=== PATIENT | male | born 1960 | race Caucasian/White ===

== ENCOUNTER 2016-09-28 19:27 | Emergency (ER) | payer MEDICARE ==
[2016-09-28] MEDS ORDERED: Morphine INJ* 2 MG/ML 1 ML CARPUJECT IV ONE (19:30)
[2016-09-28 19:34] VITALS: BP 173/102
--- NOTE | 2016-09-28 19:48 | UC ---
Cardiac HPI - HPI Summary HPI Summary: SUDDEN ONSET OF CRUSHING LEFT ANTERIOR CHEST PAIN RADIATING DOWN LEFT ARM. HAS SOME NAUSEA AND DIAPHORESIS. DENIES SOB. NO PREVIOUS CARDIAC HISTORY. - History of Current Complaint Chief Complaint: UCChestPain Stated Complaint: CHEST PAIN Time Seen by Provider: 09/28/16 19:30 Hx Obtained From: Patient Onset/Duration: Sudden Onset, Lasting Minutes, Still Present Timing: Constant Initial Severity: Severe Current Severity: Severe Pain Intensity: 7 Chest Pain Location: Left Anterior Character: Crushing Aggravating: Nothing Alleviating: Nothing Associated Signs & Symptoms: Positive: Chest Pain, Diaphoresis, Nausea/ Vomiting. Negative: Dizziness, SOB, Syncope, Fever, Palpitations, Cough, Hemoptysis, Back Pain, Abdominal Pain - Allergy/Home Medications Allergies/Adverse Reactions: Allergies Allergy/AdvReac Type Severity Reaction Status Date / Time Sulfa Antibiotics Allergy Unknown Verified 09/28/16 19:34 Reaction Details ASPIRIN Allergy Severe MAKES ME Uncoded 09/28/16 19:35 BLEED PMH/Surg Hx/FS Hx/Imm Hx Cardiovascular History Of: Reports: Hypertension - Surgical History Surgical History: None - Family History Known Family History: Positive: Cardiac Disease, Hypertension - Social History Alcohol Use: None Substance Use Type: None Smoking Status (MU): Former Smoker Review of Systems Constitutional: Negative Respiratory: Negative Cardiovascular: Chest Pain Gastrointestinal: Other - NAUSEA All Other Systems Reviewed And Are Negative: Yes Physical Exam Triage Information Reviewed: Yes Appearance: Well-Nourished, Ill-Appearing - DIAPHORETIC, Pain Distress - SEVERE Vital Signs: Initial Vital Signs Temp 97.6 F 09/28/16 19:28 Pulse 99 09/28/16 19:28 Resp 20 09/28/16 19:28 BP 173/102 09/28/16 19:28 Pulse Ox 98 09/28/16 19:28 Vital Signs Reviewed: Yes Eyes: Positive: Conjunctiva Clear ENT: Positive: Hearing grossly normal Neck: Positive: Supple Respiratory Exam: Normal Cardiovascular: Positive: Tachycardia Abdomen Description: Positive: Soft Musculoskeletal: Positive: No Edema Neurological: Positive: Alert Psychological: Positive: Age Appropriate Behavior Skin: Negative: rashes Diagnostics - EKG Cardiac Rate: NL - 89 bpm Cardiac Rhythm: Sinus: Normal Ectopy: None ST Segment: Non-Specific - 1MM ST SEGMENT ELEVATION INFERIOR LEADS, ST DEPRESSION V1, V2 - Differential Diagnoses - Chest Pain Differential Diagnosis/HQI/PQRI: Acute [place], ACS, Angina - Clinical Impression Provider Diagnoses: CHEST PAIN - Physician Notifications Discussed Patient Care With: JUAN PABLO MA RN Time Discussed With Above Provider: 19:40 Instructed by Provider To: Transfer - TO [facility] BY AMBULANCE Discharge - Discharge Plan Condition: Guarded Disposition: TRANS HIGHER LVL OF CARE FAC Referrals: Tomy Perez MD [Primary Care Provider] -
== END 2016-09-28 19:45 | disposition short-term general hospital (02) ==
LOC: UCEAST 19:27
DX: R07.89 Other chest pain (principal); R61 Generalized hyperhidrosis; R11.2 Nausea with vomiting, unspecified; Z88.6 Allergy status to analgesic agent; Z88.2 Allergy status to sulfonamides; Z87.891 Personal history of nicotine dependence
CPT/HCPCS: 93005; 96374; 99213; G0463; J2270

== ENCOUNTER 2016-09-28 19:58 | Inpatient (IN) | payer MEDICARE ==
[~2016-09-28 19:58] MED LIST: Aspirin Low Dose CHEW TAB* 81 MG ONE; Heparin for STEMI(*) 5,000 UNITS/ML 1 ML VIAL IV ONE; Nitroglycerin TAB 0.4 MG* 0.4 MG TAB ONE; Ticagrelor* 90 MG TAB PO ONE; nitroGLYCERIN DRIP* 0 ML ONE
[2016-09-28] MEDS ORDERED: Iohexol 350 (CONTRAST) 200 ML MDV IV ONE ×2 (20:09→20:55)
[2016-09-28] MEDS ORDERED: fentaNYL* 50 MCG/ML 2 ML VIAL (100 MCG VIAL) ONE (20:09)
[2016-09-28] MEDS ORDERED: Ticagrelor* 90 MG TAB PO ONE (20:09)
[2016-09-28] MEDS ORDERED: Lidocaine 1% INJ* 10 MG/ML 30 ML SDV ONE (20:09)
[2016-09-28] MEDS ORDERED: Heparin 2 UNITS/ML IVPREMIX* 3,000 ML IV ONE (20:09)
[2016-09-28] MEDS ORDERED: Midazolam* 1 MG/ML 5 ML VIAL (5 MG) ONE (20:09)
[2016-09-28] MEDS ORDERED: Heparin for STEMI(*) 5,000 UNITS/ML 1 ML VIAL IV ONE (20:10)
[2016-09-28] MEDS ORDERED: nitroGLYCERIN DRIP* 250 ML ONE (20:10)
[2016-09-28 20:17] LABS: Hematocrit 47 % (42-52); Hemoglobin 15.7 g/dl (14.0-18.0); Mean Corpuscular HGB Conc 34 g/dl (31-36); Mean Corpuscular Hemoglobin 30 pg (27-31); Mean Corpuscular Volume 90 fL (80-94); Mean Platelet Volume 9 um3 (7.4-10.4); Red Blood Count 5.19 10^6/ul (4.0-5.4); Red Cell Distribution Width 13 % (10.5-15); White Blood Count 15.4 10^3/ul (3.5-10.8)
[2016-09-28] MEDS ORDERED: Nitroglycerin TAB 0.4 MG* 0.4 MG TAB SL ONE (20:21)
--- NOTE | 2016-09-28 20:30 | RAD ---
INDICATION: Chest pain, STEMI. COMPARISON: There are no prior studies available for comparison. TECHNIQUE: A portable view of the chest was obtained. FINDINGS: Cardiac and mediastinal contours appear to be within normal limits. The lungs are underinflated and clear. No pleural effusion is seen. IMPRESSION: NO EVIDENCE FOR ACUTE DISEASE.
--- NOTE | 2016-09-28 20:30 | ED ---
Maryanne Mercedes SooYoung, scribed for Stefano Clancy MD on 09/28/16 at 2010 . HPI Chest Pain - HPI Summary HPI Summary: A 55 y/o M BIBA referred from [facility] presents to ED with STEMI. Pt has crushing left-sided CP and pain along his LUE. He states it feels like "his arm is being ripped off." Rates his current pain as 8 out of 10. According to EMS, pt was "feeling funny" all day and was having terrible pain for 30-45 mins [employer] at [facility] [place]. Pt told [facility] the CP was "the worst he's ever had." Denies SOB, nausea. Pt states he was sitting at onset of pain. Pt is a former smoker with FHx of cardiac dz. PMHx: HTN, neg DM. - History of Current Complaint Hx Obtained From: Patient, EMS Onset/Duration: Still Present Timing: Constant Initial Severity: Severe Current Severity: Severe Pain Intensity: 8 Pain Scale Used: 0-10 Numeric Chest Pain Location: Diffuse - L-sided CP, LUE pain Character: Crushing Associated Signs and Symptoms: Negative: Shortness of Breath, Nausea - Allergy/Home Medications Allergies/Adverse Reactions: Allergies Allergy/AdvReac Type Severity Reaction Status Date / Time Sulfa Antibiotics Allergy Unknown Verified 09/28/16 19:34 Reaction Details ASPIRIN Allergy Severe MAKES ME Uncoded 09/28/16 19:35 BLEED PMH/Surg Hx/FS Hx/Imm Hx Previously Healthy: No Endocrine/Hematology History: Denies: Hx Diabetes Cardiovascular History: Reports: Hx Hypertension - Family History Known Family History: Positive: Cardiac Disease - father, Hypertension - Social History Occupation: Disabled Lives: Alone Alcohol Use: None Hx Substance Use: No Substance Use Type: Reports: None Hx Tobacco Use: Yes Smoking Status (MU): Former Smoker Review of Systems Positive: Chest Pain Negative: Shortness Of Breath Negative: Nausea Positive: Myalgia - LUE pain, Other All Other Systems Reviewed And Are Negative: Yes Physical Exam Triage Information Reviewed: Yes Vital Signs On Initial Exam: Initial Vitals Temp Pulse Resp BP Pulse Ox 97.5 F 87 20 157/99 97 09/28/16 20:03 09/28/16 20:03 09/28/16 20:03 09/28/16 20:03 09/28/16 20:03 Vital Signs Reviewed: Yes Appearance: Positive: Ill-Appearing, Pain Distress - moderate Skin: Positive: Warm, Diaphoretic Eyes: Positive: FATIMAH ENT: Positive: Hearing grossly normal Neck: Positive: Supple Respiratory/Lung Sounds: Positive: Clear to Auscultation, Breath Sounds Present Cardiovascular: Positive: RRR Abdomen Description: Positive: Nontender, No Organomegaly, Soft Bowel Sounds: Positive: Present Musculoskeletal: Positive: Strength/ROM Intact Neurological: Positive: Sensory/Motor Intact, Alert, Oriented to Person Place, Time Psychiatric: Positive: Affect/Mood Appropriate Diagnostics - Vital Signs Vital Signs Temp Pulse Resp BP Pulse Ox 09/28/16 20:03 97.5 F 87 20 157/99 97 - Laboratory Lab Results: Lab Results 09/28/16 09/28/16 Range/Units 19:33 19:33 WBC 15.4 H (3.5-10.8) 10^3/ul RBC 5.19 (4.0-5.4) 10^6/ul Hgb 15.7 (14.0-18.0) g/dl Hct 47 (42-52) % MCV 90 (80-94) fL MCH 30 (27-31) pg MCHC 34 (31-36) g/dl RDW 13 (10.5-15) % Plt Count 171 (150-450) 10^3/ul MPV 9 (7.4-10.4) um3 Neut % (Auto) Pending Lymph % (Auto) Pending [place] % (Auto) Pending Eos % (Auto) Pending Baso % (Auto) Pending Absolute Neuts (auto) Pending Absolute Lymphs (auto) Pending Absolute Monos (auto) Pending Absolute Eos (auto) Pending Absolute Basos (auto) Pending Absolute Nucleated RBC Pending Nucleated RBC % Pending INR (Anticoag Therapy) 0.93 (0.89-1.11) APTT 30.4 (26.0-36.3) seconds Result Diagrams: 09/28/16 19:33 Lab Statement: Any lab studies that have been ordered have been reviewed, and results considered in the medical decision making process. - EKG No standard instances Cardiac Rate: NL EKG Rhythm: Sinus Rhythm Chest Pain Course/Dx - Diagnoses Provider Diagnoses: STEMI (ST elevation myocardial infarction) During the Visit The Following Alert/Code Occurred: STEMI - Provider Notifications Instructed by Provider To: Admit As Inpatient - Critical Care Time Critical Care Time: 30-74 min Discharge - Discharge Plan Condition: Critical Disposition: ADMITTED TO [facility] The documentation as recorded by the Maryanne gonzalez SooYoung accurately reflects the service I personally performed and the decisions made by me, Stefano Clancy MD.
[2016-09-28 20:36] LABS: Albumin 4.5 g/dL (3.2-5.2); BUN/Creatinine Ratio 13.8 (8-20); Calcium 9.7 mg/dL (8.6-10.3); EGFR African American 106.8 (>60); Globulin 3.5 g/dL (2-4); Potassium 3.6 mmol/L (3.5-5.0); Total Bilirubin 0.5 mg/dL (0.2-1.0)
[2016-09-28 20:42] LABS: Troponin I 0.04 ng/mL (<0.04)
[2016-09-28] MEDS ORDERED: Bivalirudin(*) 250 MG VIAL ONE (20:59)
[2016-09-28] MEDS ORDERED: Ondansetron INJ* 2 MG/ML VIAL IV PRN (21:16)
[2016-09-28] MEDS ORDERED: Docusate CAP* 100 MG PO PRN (21:16)
[2016-09-28] MEDS ORDERED: Acetaminophen TAB* 325 MG PO PRN (21:16)
[2016-09-28] MEDS ORDERED: oxyCODONE/Acetamin 5/325 MG* TAB PO PRN (21:16)
[2016-09-28] MEDS ORDERED: Nitroglycerin TAB 0.4 MG* 0.4 MG TAB SL PRN (21:16)
[2016-09-28] MEDS ORDERED: Zolpidem TAB* 5 MG PO PRN (21:16)
[2016-09-28] MEDS ORDERED: fentaNYL* 50 MCG/ML 2 ML VIAL (100 MCG VIAL) IV PRN (21:16)
[2016-09-28] MEDS ORDERED: NS 0.9% 1000 ML* 1,000 ML IV SCH (21:30)
[2016-09-28] MEDS ORDERED: Metoprolol Tartrate TAB* 25 MG PO SCH (22:00)
[2016-09-28] MEDS ORDERED: Gabapentin CAP(*) 100 MG ONE (22:02)
[2016-09-28] MEDS: Metoprolol Tartrate TAB* 25 MG PO SCH (22:05)
[2016-09-28] MEDS: Atorvastatin* 80 MG TAB PO SCH (22:05)
[2016-09-29 01:29] LABS: Creatine Kinase 2109 U/L (10-223)
[2016-09-29 01:30] LABS: Troponin I > 85.00 ng/mL (<0.04)
[2016-09-29] MEDS ORDERED: Potassium Chloride LIQUID* 20 MEQ PACKET ONE (01:40)
[2016-09-29] MEDS ORDERED: Magnesium Sulfate 1 GM IV* 1 GM/100 ML BAG IV PRN (01:48)
[2016-09-29 06:01] LABS: Hematocrit 44 % (42-52); Hemoglobin 14.9 g/dl (14.0-18.0); Mean Corpuscular HGB Conc 34 g/dl (31-36); Mean Corpuscular Hemoglobin 31 pg (27-31); Mean Corpuscular Volume 91 fL (80-94); Mean Platelet Volume 9 um3 (7.4-10.4); Red Cell Distribution Width 13 % (10.5-15); White Blood Count 14.6 10^3/ul (3.5-10.8)
[2016-09-29 06:13] LABS: Albumin 3.9 g/dL (3.2-5.2); BUN/Creatinine Ratio 15.6 (8-20); Calcium 9.2 mg/dL (8.6-10.3); EGFR African American 134.4 (>60); EGFR Non-African American 104.5 (>60); Globulin 3.1 g/dL (2-4); HDL Cholesterol 25.5 mg/dL; Potassium 3.9 mmol/L (3.5-5.0); Total Bilirubin 0.6 mg/dL (0.2-1.0)
[2016-09-29 06:19] LABS: Troponin I 63.83 ng/mL (<0.04)
[2016-09-29] MEDS: Ticagrelor* 90 MG TAB PO SCH ×3 (06:44→22:43)
[2016-09-29] MEDS: Metoprolol Tartrate TAB* 25 MG PO SCH ×2 (08:14→21:08)
[2016-09-29] MEDS ORDERED: Gabapentin CAP(*) 300 MG PO SCH ×2 (09:00→17:04)
[2016-09-29] MEDS: Aspirin Low Dose CHEW TAB* 81 MG PO SCH (09:11)
--- NOTE | 2016-09-29 14:30 | HP ---
ADMISSION HISTORY AND PHYSICAL: DATE OF ADMISSION: 09/28/16 CHIEF COMPLAINT: The patient presents with chest discomfort with an EKG suggestive of an acute ST segment elevation posterior CA. HISTORY OF PRESENT ILLNESS: The patient is a pleasant 55-year-old gentleman who was in his usual state of health until yesterday while sitting, watching TV , he developed the onset of severe left arm discomfort. Eventually it progressed to the chest, with nauseousness and sweating. He instructed his to take him to [facility] where an EKG was done which showed acute ST segment depression in V1 and V2, suggesting a posterior CA, with question of minimal, if any, ST segment elevation inferiorly. STEMI alert was called and he was transferred to [facility] Emergency Room. In the emergency room, he was still having severe discomfort. He received a bolus of 4000 units of heparin, had already received aspirin therapy, and he received Brilinta 180 mg and morphine for the discomfort. The risk and benefits of cardiac catheterization and acute intervention were explained. He understood them and wished to proceed. Cardiac risk factors include a family history of a father who had his first heart problems in his 40s, with bypass surgery, and subsequently from it. He has a history of hypertension, a remote nonsignificant smoking history, no history of diabetes, and he has no knowledge of high cholesterol. PAST MEDICAL HISTORY: Includes: 1. Hypertension. 2. He has significant back issues. 3. He also has history of prostate problems. MEDICATIONS: He is on medication with gabapentin and also ibuprofen. 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 No stroke or TIA. No history of dye allergy. No history of known renal insufficiency, and no allergy to the contrast agent. PHYSICAL EXAMINATION VITAL SIGNS: When I saw him in the emergency room, blood pressure 157/99, pulse is 87, respirations 20, afebrile. HEENT: Conjunctivae are pink. Sclerae are clear. Mouth reveals moist mucosa. NECK: Supple, with no increased JVP. Carotids are without bruits. LUNGS: Reveal no accessory muscle usage. There is no active rales, rhonchi or wheezes. HEART: Reveals no visible heaves, no palpable heaves or thrills. A regular rate and rhythm is noted. No significant systolic or diastolic murmur. ABDOMEN: Soft and nontender, without organomegaly. EXTREMITIES: Without clubbing, cyanosis or love pitting edema. Peripheral pulses are intact. MUSCULOSKELETAL: The patient moves all extremities appropriately. NEUROLOGIC: The patient is alert and oriented, with normal mentation. PSYCHOLOGICAL: The patient appropriately anxious. DIAGNOSTIC STUDIES/LAB DATA: Laboratory results - Pending at the time of proceeding to the cardiovascular laboratory. Chest x-ray report - Pending at the time of proceeding. Electrocardiogram showed mild J-point elevation in V5 and V6, and perhaps less so in the inferior leads, with ST segment depression in V1 and V2, all suggesting a posterolateral myocardial infarction. The patient received heparin therapy, Brilinta therapy, and aspirin. The risks and benefits were explained. We will adjust management pending the results of the cardiac catheterization. CC: Dr. Tomy Perez * [id number]/[facility] #: [id number] MTDD
[2016-09-29 15:14] LABS: Troponin I 23.37 ng/mL (<0.04)
[2016-09-29 16:12] LABS: Hematocrit 42 % (42-52); Hemoglobin 14.5 g/dl (14.0-18.0); Mean Corpuscular HGB Conc 34 g/dl (31-36); Mean Corpuscular Hemoglobin 31 pg (27-31); Mean Corpuscular Volume 90 fL (80-94); Mean Platelet Volume 8 um3 (7.4-10.4); Red Blood Count 4.69 10^6/ul (4.0-5.4); Red Cell Distribution Width 13 % (10.5-15); White Blood Count 17.7 10^3/ul (3.5-10.8)
--- NOTE | 2016-09-29 17:33 | RAD ---
INDICATION: Fever. COMPARISON: Comparison is made with a prior chest x-ray study from September 28, 2016. TECHNIQUE: A portable view of the chest was obtained. FINDINGS: Cardiac and mediastinal contours appear to be within normal limits. The lungs are underinflated and clear. No pleural effusion is seen. IMPRESSION: NO EVIDENCE FOR ACUTE DISEASE.
[2016-09-29] MEDS: Cefepime(*) 1 GM in NS 0.9% 50 ML* 50 ML IVPB SCH (17:52)
[2016-09-29] MEDS ORDERED: Vancomycin(*) 1,500 MG in NS 0.9% 250 ML* 250 ML IVPB SCH (18:00)
[2016-09-29] MEDS ORDERED: Vancomycin per Pharmacy* NOTE FOLLOW UP PRN (18:06)
[2016-09-29] MEDS ORDERED: Vancomycin(*) 1,500 MG in NS 0.9% 250 ML* 250 ML IVPB ONE (18:30)
[2016-09-29 18:45] LABS: Urine Bilirubin Negative (Negative); Urine Glucose Negative (Negative); Urine Nitrite Negative (Negative)
[2016-09-29] MEDS: Tamsulosin CAP* 0.4 MG PO SCH (18:54)
[2016-09-29] MEDS: Atorvastatin* 80 MG TAB PO SCH (18:54)
[2016-09-29] MEDS: Gabapentin CAP(*) 100 MG PO SCH (21:08)
[2016-09-29] MEDS: Vancomycin(*) 1,000 MG in NS 0.9% 250 ML* 250 ML IVPB SCH (23:36)
--- NOTE | 2016-09-30 01:47 | CONS ---
CONSULTATION REPORT: DATE OF CONSULT: 09/29/16 PHYSICIAN CONSULTING CONSULT: Dr. Leigh from Cardiology. PRIMARY CARE PROVIDER: Dr. Perez. REASON FOR CONSULT: Fever. HISTORY OF PRESENT ILLNESS: Deuce Ambriz is a 55-year-old male who was admitted on 09/29/16 for STEMI. He presented with chest pain. He was a STEMI alert and had an emergent catheterization and stent placement by Dr. Leigh. The same day in the afternoon, he developed rigors. He felt cold and chilly and he developed a fever of 101.9 degrees. He has no other symptoms. Dr. Leigh asked me to see the patient in consultation in regards to the patient's fever. PAST MEDICAL HISTORY: 1. Hypertension. 2. History of chronic back pain. 3. History of BPH. MEDICATIONS: At home, include: 1. Flomax 0.4 mg daily. 2. Hydrochlorothiazide 25 mg daily. 3. Hydrocodone/acetaminophen 5/325 mg 5 tablets every 6 hours p.r.n. 4. Gabapentin 100 mg b.i.d. 5. Ibuprofen 800 mg on a p.r.n. basis. ALLERGIES: Include SULFA ANTIBIOTICS and ASPIRIN, although it appears that the patient received aspirin so far and has no side effects. SOCIAL HISTORY: The patient has a history of [id number] smoking and he quit in . He denies any alcohol or drug use. He is on disability and lives alone. His surrogate would be sister, Elsa. REVIEW OF SYSTEMS: Please see history of present illness. Apart from recent chest pain which resolved after cardiac catheterization, the patient denies any specific complaints. He denies any chest pain currently. No shortness of breath. No nausea or vomiting. His bowels have been moving regularly. He denies any skin lesions. He has had no sick contacts. All the remaining 14 systems were reviewed with the patient and were otherwise negative. PHYSICAL EXAM: Blood pressure of 104/63, heart rate of 65 and regular, respiratory rate 15, oxygen saturation 99% on room air, and temperature max of 101.9. General: This is a very pleasant 55-year-old male, whose skin is mildly flushed. The patient is in no acute distress. Alert, awake, and oriented x3. HEENT: Head: Atraumatic, normocephalic. Eyes: Pupils equal, reactive to light and accommodation. Oropharynx clear. Mucosa moist. Neck: Supple. No JVD, no bruit bilaterally. Cardiovascular: Regular rate and rhythm. No murmur. Respiratory: Clear to auscultation bilaterally. Abdomen: Soft, nontender. Bowel sounds present in all 4 quadrants. Extremities: There is no edema. Pulses are +2 bilaterally. No clubbing or cyanosis. On evaluation of the skin, flushed skin on the upper torso. No lesions are appreciated. No ecchymotic areas are appreciated. Neuro Evaluation: Speech clear. Cranial nerves II through XII grossly intact. Motor strength is 5/5 bilaterally. Specifically, on evaluation of the skin, the right inguinal area where the cardiac catheterization access was performed has a small puncture site. There is no evidence of hematoma. The right femoral and pedal pulses are palpable and +2. There is no evidence of cellulitis. The area is not tender. DIAGNOSTIC STUDIES/LAB DATA: From today shows white blood cell count of 17.7, hemoglobin 14.5, hematocrit 42, and platelets of 150. Sodium 135, potassium 3.9 , chloride 106, carbon dioxide 24, BUN 12, creatinine 0.77. The patient's CK was 110. Troponin of 23. Portable chest x-ray on admission was unremarkable. The second chest x-ray obtained today is pending at the time of dictation. Urinalysis, blood cultures, and flu swab are still pending at the time of dictation. ASSESSMENT AND PLAN: Deuce Ambriz is a 55-year-old male with a history of recent cardiac catheterization within the past 24 hours, who presented to the hospital as a STEMI alert. He received cardiac catheterization and now, he is febrile with rigors. He does have leukocytosis. At this point, I discussed the case with Dr. Leigh and preference is for the patient to be treated for line sepsis. The patient is empirically going to be placed on vancomycin and cefepime. Before the antibiotics are infused, blood cultures are going to be obtained. I will also obtain a lactic acid level. I will also place the patient on gentle hydration. In regards to the patient's coronary artery disease, that is managed as per Cardiology. For DVT prophylaxis, the patient was ambulatory. Thank you for allowing me to see your patient in consultation. We will follow on a daily basis. CC: Dr. Leigh; Dr. Perez* [id number]/[facility] #: [id number] ROSARIO
--- NOTE | 2016-09-30 05:29 | CATH ---
CARDIAC CATHETERIZATION REPORT AND INTERVENTIONAL REPORT: DATE OF PROCEDURE: 09/28/16 INDICATION FOR THE PROCEDURE: The patient with an acute ST segment elevation posterolateral wall myocardial infarction. PROCEDURES: Coronary arteriography, primary stenting of the trifurcation marginal branch with a 2.75 x 16-mm long Synergy drug-eluting stent postdilated to 3.1 to 3.2 mm, left heart catheterization, left ventriculography. The patient was interviewed and examined in the emergency room where the risks and benefits were explained. He understood them and wished to proceed. DESCRIPTION OF PROCEDURE: He was brought to the cardiovascular laboratory where a formal time-out was performed. The patient was prepped and draped in a sterile fashion. Right coronary was anesthetized with 1% lidocaine. The right femoral artery was cannulated, and a 6.5-Prydeinig Merit Prelude sheath was placed. Coronary arteriography was performed using a 5-Prydeinig FR-4 curve right coronary catheter and a 6-Prydeinig VL-4 curve guide catheter. ACT was checked and found to be subtherapeutic for intervention. The patient received a bolus of Angiomax and an Angiomax drip was started. An 0.14 AllStar wire was advanced down the trifurcation marginal branch and primary stenting was performed utilizing the 2.75 x 60 mm long Synergy drug-eluting stent with postdeployment high pressure balloon inflations with a 3.0 x 8 mm NC Emerge balloon. Following this, the artery was assessed in various angles. Following this, central aortic pressure was recorded using an angle pigtail catheter advanced to the ascending aorta. It was then passed across the aortic valve into the left ventricle where left ventricular pressure was recorded. Left ventriculography was performed utilizing a total of 24 cc of Omnipaque dye at a rate of 12 cc per second. The catheter was pulled back across the aortic valve to recheck gradient. At the end of the case, an injection was made into the right femoral sheath to assess eligibility to utilize the closure device. It was found to be acceptable for this and as such, a 6/7-Prydeinig Mynx closure device was deployed with good hemostasis. The total contrast used was 145 cc of Omnipaque dye. The radiation exposure included 8.9 minutes of fluoro time. The air kerma radiation was 1604 mGy. The DAPA radiation was 9320 microgray per sq. meter. RESULTS: HEMODYNAMIC DATA: Left heart catheterization - central aortic pressure recorded at 144/86 with a mean of 112, left ventricular pressure 146 over left ventricular end- diastolic pressure of 23. LEFT VENTRICULOGRAPHY: Performed in the STERN projection revealed suboptimal imaging but from limited views, the inferior wall appeared to contract normally. The proximal anterior wall appeared to contract normally. The apex was not well visualized ( echocardiogram will be performed for LV function). CORONARY ARTERIOGRAPHY: A. Right coronary artery - a dominant vessel supplying the PDA and one posterior left ventricular branch. There was diffuse irregular appearance to the artery in general with areas of luminal reduction of 20% in its proximal and midportion. The distal portion had a focal area of 25% to 30% prior to the PDA. B. Left coronary artery: 1. Left main - no significant obstruction seen. 2. Left anterior descending artery - the left anterior descending artery appeared to have an abrupt caliber change in its proximal portion, almost felt to be somewhat aneurysmally dilated proximally. Past the proximal aneurysmal area, the artery appeared to have a reduction in caliber of 50% near the takeoff of the first diagonal branch. The continuation of the left anterior descending artery had narrowing of 40% to 45% followed by a beaded appearance with areas of 35% to 40% narrowing as it traversed toward the apical region. It became quite small in caliber. The first diagonal branch was a large vessel traversing on the anterolateral wall with no significant stenosis. 3. Circumflex artery - a nondominant vessel supplying a trifurcation marginal branch followed by a mid obtuse marginal branch with a circumflex continuing on to a low-lying posterior LV branch. Trifurcation marginal branch had a 99% lesion with DEVANG-I flow noted. Past this point, the first obtuse marginal branch had a proximal narrowing of perhaps 50% to 55% leading to a larger area followed by a 45% to 50% narrowing just past this. The continuation of the circumflex had no significant obstruction. INTERVENTION INTO TRIFURCATION MARGINAL BRANCH: Successful intervention to 99% stenosed proximal lesion in trifurcation marginal branch with primary stenting utilizing a 2.75 x 16 mm long Synergy drug -eluting stent postdilated to 3.1 to 3.2 mm with DEVANG-III flow, no dissection seen, and 0% residual stenosis. OVERALL ASSESSMENT: Significant critical disease involving the high trifurcation marginal branch producing a posterolateral infarct successfully treated with primary stenting as described above. There is moderate diffuse disease and perhaps some aneurysmal areas of dilatation in the proximal LAD. Aggressive risk factor management will be pursued with cholesterol management in addition to dual antiplatelet therapy, aspirin therapy. The patient currently does not smoke. CC: Dr. Tomy Perez* [id number]/[facility] #: [id number] MTDD
[2016-09-30] MEDS: Vancomycin(*) 1,000 MG in NS 0.9% 250 ML* 250 ML IVPB SCH ×4 (06:11→23:26)
[2016-09-30] MEDS: Cefepime(*) 1 GM in NS 0.9% 50 ML* 50 ML IVPB SCH ×2 (06:11→17:50)
[2016-09-30 06:24] LABS: Hematocrit 41 % (42-52); Mean Corpuscular HGB Conc 34 g/dl (31-36); Mean Corpuscular Hemoglobin 31 pg (27-31); Mean Corpuscular Volume 91 fL (80-94); Mean Platelet Volume 9 um3 (7.4-10.4); Red Blood Count 4.52 10^6/ul (4.0-5.4); Red Cell Distribution Width 13 % (10.5-15); White Blood Count 14.9 10^3/ul (3.5-10.8)
[2016-09-30] MEDS: Gabapentin CAP(*) 100 MG PO SCH ×2 (09:13→20:40)
[2016-09-30] MEDS: Metoprolol Tartrate TAB* 25 MG PO SCH ×2 (09:13→20:41)
[2016-09-30] MEDS: Aspirin Low Dose CHEW TAB* 81 MG PO SCH (09:13)
[2016-09-30] MEDS: Ticagrelor* 90 MG TAB PO SCH ×2 (09:14→20:41)
--- NOTE | 2016-09-30 11:08 | ECHO ---
Patient: PEGGY LORENZ [facility] Rec#: [id number] : 1960 Date: 09/30/2016 Age: 55y Height: 187.96 cm / 74.0 in Weight: 95.25 kg / 209.9 lbs Sex: M BSA: 2.22 Room#: ICU-2 Admit Date#: 09/28/2016 Referring: Severo Leigh MD Reading: Srinivasan Singletary MD Contact Finger Assembler: Alana Estrada MORRIS CC: Tomy Perez MD Transthoracic Echocardiogram Indication: STEMI BP: 105/75 HR: 76 Rhythm: NSR Findings History: STEMI 09/28/16 with PCI,HTN,former smoker. Technical Comments: The study quality is good. Completed at 1015. Left Ventricle: Mild concentric left ventricular hypertrophy is observed. Left ventricular systolic function is at the lower limits of normal. The estimated ejection fraction is 50-55%. Normal left ventricular diastolic filling is observed. The mid anterolateral, and apical lateral wall segments are hypokinetic (score 2). Overall wallmotion score index is 2.00 Left Atrium: The left atrium is normal in size. Right Ventricle: The right ventricular cavity size is normal. The right ventricular global systolic function is normal. Right Atrium: The right atrial cavity size is normal. Aortic Valve: The aortic valve is trileaflet. There is no evidence of aortic regurgitation. There is no evidence of aortic stenosis. Mitral Valve: The mitral valve leaflets are mildly thickened. There is trace to mild mitral regurgitation. There is no evidence of mitral stenosis. Tricuspid Valve: The tricuspid valve leaflets are normal. There is a physiologic tricuspid regurgitation. Unable to estimate the right ventricular systolic pressure. Pulmonic Valve: The pulmonic valve appears normal. There is a trace pulmonic regurgitation. There is no pulmonic stenosis. Pericardium: The pericardium appears normal. Aorta: There is no dilatation of the ascending aorta. There is no dilatation of the aortic arch. There is mild dilatation of the aortic root. Pulmonary Artery: The main pulmonary artery appears normal. Venous: The venous system is not well visualized. Conclusions Left ventricular systolic function is at the lower limits of normal. The estimated ejection fraction is 50-55%. The mid anterolateral, and apical lateral wall segments are hypokinetic (score 2). The right ventricular global systolic function is normal. There is no evidence of aortic regurgitation. There is trace to mild mitral regurgitation. There is a physiologic tricuspid regurgitation. Unable to estimate the right ventricular systolic pressure. The pericardium appears normal. Measurements Name Value Normal Range RVIDd (AP) 2D 3.2 cm (0.9 - 2.6) RVDdMajor (2D) 2.9 cm (2.2 - 4.4) RAd ISD 4CH 3.7 cm (3.4 - 4.9) RA (A4C)W 3.4 cm (2.9 - 4.6) IVSd (2D) 1.2 cm (0.6 - 1) LVPWd (2D) 1.4 cm (0.6 - 1) LVIDd (2D) 4.5 cm (3.6 - 5.4) LVIDs (2D) 3.2 cm - LV FS (2D) 29 % (25 - 45) Aortic Annulus 2.3 cm (1.4 - 2.6) Ao root diameter (2D) 3.9 cm (2.1 - 3.5) Ascending Ao 3.3 cm (2.1 - 3.4) Aortic arch 2.9 cm (1.8 - 3.4) Descending Ao 0.9 cm - LA dimension (AP) 2D 3.8 cm (2.3 - 3.8) LAd ISD 4CH 4.9 cm (2.9 - 5.3) LA ISD 4CH W 4 cm (2.5 - 4.5) Name Value Normal Range LA ESV SP 4CH (A/L) 52 ml - LA ESV SP 2CH (A/L) 47 ml - LA ESV BP (A/L) 50 ml - LA ESV BP (A/L) index 22.67 ml/m2 - LA ESV SP 4CH (MOD) 44 ml - LA ESV SP 2CH (MOD) 44 ml - Name Value Normal Range MV E-wave Vmax 0.8 m/sec - MV deceleration time 138 msec - MV A-wave Vmax 0.5 m/sec - MV E:A ratio 1.46 ratio - LV septal e' Vmax 0.07 m/sec - LV lateral e' Vmax 0.12 m/sec - LV E:e' septal ratio 11.42 ratio - LV E:e' lateral ratio 6.67 ratio - Name Value Normal Range AV Vmax 1.3 m/sec - AV VTI 27.8 cm - AV peak gradient 7.18 mmHg - AV mean gradient 3.7 mmHg - LVOT Vmax 1.1 m/sec - LVOT VTI 24.6 cm - LVOT peak gradient 5.26 mmHg - LVOT mean gradient 2.46 mmHg - Name Value Normal Range IVC diameter 1.4 cm - Name Value Normal Range PV Vmax 0.9 m/sec - PV peak gradient 3.35 mmHg - Wallmotion BAS Not Seen BA Not Seen BAL Not Seen GARRET Not Seen BI Not Seen BIS Not Seen MAS Not Seen MA Not Seen MAL Hypokinetic MIL Not Seen OK Not Seen MIS Not Seen Not Seen AA Not Seen AL Hypokinetic AI Not Seen APEX Not Seen
[2016-09-30] MEDS ORDERED: Vancomycin Trough Check NOTE FOLLOW UP ONE (12:30)
--- NOTE | 2016-09-30 12:37 | PN ---
Subjective Date of Service: 09/30/16 Interval History: No chest pain, cough, SOB, chills, sweats. No GI or other c/o. Objective Active Medications: Acetaminophen (Tylenol Tab*) 650 mg PO Q4H PRN PRN Reason: HEADACHE/PAIN Last Admin: 09/29/16 21:07 Dose: 650 mg Aspirin (Aspirin Low Dose Tab*) 81 mg PO DAILY [facility] Last Admin: 09/30/16 09:13 Dose: 81 mg Atorvastatin Calcium (Lipitor*) 80 mg PO 1700 [facility] Last Admin: 09/29/16 18:54 Dose: 80 mg Docusate Sodium (Colace Cap*) 100 mg PO DAILY PRN PRN Reason: CONSTIPATION Fentanyl Citrate (Fentanyl*) 25 mcg IV Q2H PRN PRN Reason: PAIN Gabapentin (Neurontin Cap(*)) 200 mg PO BID [facility] Last Admin: 09/30/16 09:13 Dose: 200 mg Sodium Chloride (Ns 0.9% 1000 Ml*) 1,000 mls @ 100 mls/hr IV .per rate [facility] Last Admin: 09/28/16 22:06 Dose: 100 mls/hr Magnesium Sulfate/Dextrose (Magnesium Sulfate 1 Gm Iv*) 1 gm in 100 mls @ 200 mls/hr IV ONCE PRN PRN Reason: MAGNESIUM < 2 Cefepime HCl 1 gm/ Sodium (Chloride) 50 mls @ 100 mls/hr IVPB Q12H [facility] Last Admin: 09/30/16 06:11 Dose: 100 mls/hr Vancomycin HCl 1,000 mg/ (Sodium Chloride) 250 mls @ 166.667 mls/hr IVPB Q6H [facility] Last Admin: 09/30/16 06:11 Dose: 166.667 mls/hr Metoprolol Tartrate (Lopressor Tab*) 25 mg PO BID [facility] Last Admin: 09/30/16 09:13 Dose: 25 mg Nitroglycerin (Nitroglycerin Tab 0.4 Mg*) 0.4 mg SL Q5M PRN PRN Reason: ANGINA Ondansetron HCl (Zofran Inj*) 4 mg IV Q4H PRN PRN Reason: NAUSEA Oxycodone/Acetaminophen (Percocet 5/325 Tab*) 1 tab PO Q6H PRN PRN Reason: PAIN Pharmacy Consult (Vancomycin Per Pharmacy*) 1 note FOLLOW UP . PRN PRN Reason: PER PROTOCOL Tamsulosin HCl (Flomax Cap*) 0.4 mg PO 1800 [facility] Last Admin: 09/29/16 18:54 Dose: 0.4 mg Ticagrelor (Brilinta*) 90 mg PO BID [facility] Last Admin: 09/30/16 09:14 Dose: 90 mg Zolpidem Tartrate (Ambien Tab*) 5 mg PO BEDTIME PRN PRN Reason: INSOMNIA Vital Signs 09/29/16 09/29/16 09/29/16 13:00 14:00 14:32 Temperature 100.6 F Pulse Rate Respiratory 18 17 Rate Blood Pressure 138/102 (mmHg) O2 Sat by Pulse Oximetry 09/29/16 09/29/16 09/29/16 14:38 15:00 15:30 Temperature Pulse Rate Respiratory 18 Rate Blood Pressure 133/85 108/73 117/65 (mmHg) O2 Sat by Pulse Oximetry 09/29/16 09/29/16 09/29/16 16:00 16:30 16:32 Temperature 101.9 F 99.0 F Pulse Rate Respiratory 18 Rate Blood Pressure 116/63 106/68 (mmHg) O2 Sat by Pulse Oximetry 09/29/16 09/29/16 09/29/16 17:00 17:30 17:42 Temperature 100.9 F Pulse Rate Respiratory 16 Rate Blood Pressure 123/74 119/67 (mmHg) O2 Sat by Pulse Oximetry 09/29/16 09/29/16 09/29/16 18:00 18:30 19:00 Temperature Pulse Rate Respiratory 15 16 Rate Blood Pressure 116/72 126/79 96/42 (mmHg) O2 Sat by Pulse Oximetry 09/29/16 09/29/16 09/29/16 19:30 20:00 20:30 Temperature 101.4 F Pulse Rate Respiratory 16 Rate Blood Pressure 106/51 101/57 87/44 (mmHg) O2 Sat by Pulse Oximetry 09/29/16 09/29/16 09/29/16 21:00 21:30 22:00 Temperature 101 F Pulse Rate 76 74 80 Respiratory 23 22 20 Rate Blood Pressure 101/65 98/65 98/64 (mmHg) O2 Sat by Pulse 95 94 94 Oximetry 09/29/16 09/29/16 09/29/16 22:30 22:37 23:00 Temperature Pulse Rate 83 79 80 Respiratory 22 20 20 Rate Blood Pressure 102/61 95/60 (mmHg) O2 Sat by Pulse 96 95 96 Oximetry 09/29/16 09/29/16 09/29/16 23:33 23:40 23:52 Temperature 98.0 F Pulse Rate 89 Respiratory 28 25 Rate Blood Pressure 65/46 110/70 (mmHg) O2 Sat by Pulse 96 Oximetry 09/30/16 09/30/16 09/30/16 00:00 00:01 00:30 Temperature Pulse Rate 76 74 80 Respiratory 22 20 23 Rate Blood Pressure 92/64 96/65 (mmHg) O2 Sat by Pulse 96 96 94 Oximetry 09/30/16 09/30/16 09/30/16 01:00 01:30 02:00 Temperature Pulse Rate 78 73 74 Respiratory 25 21 19 Rate Blood Pressure 92/61 100/62 83/54 (mmHg) O2 Sat by Pulse 94 97 96 Oximetry 09/30/16 09/30/16 09/30/16 02:30 03:00 04:00 Temperature 99.8 F Pulse Rate 68 74 69 Respiratory 23 17 20 Rate Blood Pressure 94/55 112/71 (mmHg) O2 Sat by Pulse 95 95 96 Oximetry 09/30/16 09/30/16 09/30/16 04:09 04:30 05:00 Temperature Pulse Rate 73 84 74 Respiratory 19 24 17 Rate Blood Pressure 88/53 112/72 97/65 (mmHg) O2 Sat by Pulse 97 98 96 Oximetry 09/30/16 09/30/16 09/30/16 05:30 06:00 06:30 Temperature Pulse Rate 72 86 78 Respiratory 22 24 17 Rate Blood Pressure 105/66 105/75 111/74 (mmHg) O2 Sat by Pulse 95 96 98 Oximetry 09/30/16 09/30/16 09/30/16 07:00 07:30 08:00 Temperature 99.2 F Pulse Rate 72 66 70 Respiratory 16 19 17 Rate Blood Pressure 111/63 107/69 120/75 (mmHg) O2 Sat by Pulse 97 95 98 Oximetry 09/30/16 09/30/16 09/30/16 09:00 10:00 11:00 Temperature Pulse Rate 85 70 64 Respiratory 18 17 18 Rate Blood Pressure (mmHg) O2 Sat by Pulse 97 98 97 Oximetry 09/30/16 11:48 Temperature 98.9 F Pulse Rate Respiratory Rate Blood Pressure (mmHg) O2 Sat by Pulse Oximetry Oxygen Devices in Use Now: None Appearance: Alert, standing by ICU bed. In good spirits. Looks comfortable. Eyes: No Scleral Icterus Ears/Nose/Mouth/Throat: Clear Oropharnyx, Mucous Membranes Moist Neck: NL Appearance and Movements; NL JVP, No Thyroid Enlargement, Masses Respiratory: Symmetrical Chest Expansion and Respiratory Effort, Clear to Auscultation, Clear to Percussion Extremities: No Edema, No Clubbing, Cyanosis, - Skin: No Rash or Ulcers, No Nodules or Sclerosis, - Neurological: Alert and Oriented x 3, NL Sensation Result Diagrams: 09/30/16 06:15 09/29/16 05:48 Additional Lab and Data: Lab Results 09/28/16 09/28/16 Range/Units 19:33 19:33 WBC 15.4 H (3.5-10.8) 10^3/ul RBC 5.19 (4.0-5.4) 10^6/ul Hgb 15.7 (14.0-18.0) g/dl Hct 47 (42-52) % MCV 90 (80-94) fL MCH 30 (27-31) pg MCHC 34 (31-36) g/dl RDW 13 (10.5-15) % Plt Count 171 (150-450) 10^3/ul MPV 9 (7.4-10.4) um3 Neut % (Auto) Pending Lymph % (Auto) Pending [place] % (Auto) Pending Eos % (Auto) Pending Baso % (Auto) Pending Absolute Neuts (auto) Pending Absolute Lymphs (auto) Pending Absolute Monos (auto) Pending Absolute Eos (auto) Pending Absolute Basos (auto) Pending Absolute Nucleated RBC Pending Nucleated RBC % Pending INR (Anticoag Therapy) 0.93 (0.89-1.11) APTT 30.4 (26.0-36.3) seconds Microbiology and Other Data: Microbiology 09/29/16 17:30 Nasal Screen MRSA (PCR)([facility]) - Final Nasal Mrsa Negative 09/29/16 17:30 Influenza Types A,B Antigen ([facility]) - Final Nasal Specimen received for Influenza A/B Molecular testing Assess/Plan/Problems-Billing Assessment: - Patient Problems (1) ACS (acute coronary syndrome) Current Visit: Yes Status: Acute Code(s): I24.9 - ACUTE ISCHEMIC HEART DISEASE, UNSPECIFIED SNOMED Code(s): 642827919 Comment: S/P cardiac stent 09/29/16. Continue ticagrelor, metioprolol, ASA, high-dose atorvastatin. (2) Fever Current Visit: Yes Status: Acute Code(s): R50.9 - FEVER, UNSPECIFIED SNOMED Code(s): 157531726 Comment: Clinical picture most consistent with fever d/t ID. Procalcitonin, CBC on 10/01. Continue antibiotics until 48 hrs after blood C& drawn. (3) Prostatism Current Visit: Yes Status: Acute Code(s): N40.0 - BENIGN PROSTATIC HYPERPLASIA WITHOUT LOWER URINRY TRACT SYMP SNOMED Code(s): 59001046 Comment: Continue tamsulosin.
[2016-09-30 13:21] LABS: Vancomycin Trough 10.2 mcg/mL
[2016-09-30 13:22] LABS: BUN/Creatinine Ratio 14.8 (8-20); Calcium 9.7 mg/dL (8.6-10.3); EGFR African American 115.2 (>60); EGFR Non-African American 89.6 (>60); Potassium 3.9 mmol/L (3.5-5.0)
[2016-09-30] MEDS: Atorvastatin* 80 MG TAB PO SCH (17:49)
[2016-09-30] MEDS: Tamsulosin CAP* 0.4 MG PO SCH (17:49)
[2016-09-30] MEDS ORDERED: NS 0.9% 250 ML* 250 ML ONE (20:21)
[2016-10-01 04:59] LABS: Hematocrit 42 % (42-52); Hemoglobin 14.1 g/dl (14.0-18.0); Mean Corpuscular HGB Conc 34 g/dl (31-36); Mean Corpuscular Hemoglobin 31 pg (27-31); Mean Corpuscular Volume 91 fL (80-94); Mean Platelet Volume 9 um3 (7.4-10.4); Red Blood Count 4.58 10^6/ul (4.0-5.4); Red Cell Distribution Width 14 % (10.5-15); White Blood Count 11.2 10^3/ul (3.5-10.8)
[2016-10-01 05:09] LABS: BUN/Creatinine Ratio 14.6 (8-20); Calcium 9.1 mg/dL (8.6-10.3); EGFR Non-African American 97.2 (>60); Potassium 3.9 mmol/L (3.5-5.0)
[2016-10-01] MEDS: Cefepime(*) 1 GM in NS 0.9% 50 ML* 50 ML IVPB SCH (05:12)
[2016-10-01] MEDS: Vancomycin(*) 1,000 MG in NS 0.9% 250 ML* 250 ML IVPB SCH (05:56)
[2016-10-01] MEDS: Aspirin Low Dose CHEW TAB* 81 MG PO SCH (09:50)
[2016-10-01] MEDS: Gabapentin CAP(*) 100 MG PO SCH (09:51)
[2016-10-01] MEDS: Metoprolol Tartrate TAB* 25 MG PO SCH (09:51)
[2016-10-01] MEDS: Ticagrelor* 90 MG TAB PO SCH (09:52)
[2016-10-01 11:48] VITALS: BP 118/69
--- NOTE | 2016-10-02 03:44 | DS ---
DISCHARGE SUMMARY: DATE OF ADMISSION: 09/28/16 DATE OF DISCHARGE: 10/01/16 PRIMARY CARE PHYSICIAN: Dr. Perez. FIRE PROTECTION DESIGNER: Dr. Leigh. DISCHARGE DIAGNOSES: 1. Acute inferolateral ST-elevation infarct. 2. Hypertension. 3. Benign prostatic hyperplasia. PROCEDURES: Cardiac cath, stent placement, Dr. Leigh, 09/28/16, with 2.75 x 16 Synergy drug-eluting stent. Echocardiogram, telemetry. CONDITION AT DISCHARGE: Stable. DISCHARGE FOLLOWUP: Follow up with Dr. Leigh next week for the wound check and Dr. Perez as previously. ACTIVITY: No strenuous exertion for 1 week. Do not lift more than 20 pounds for 3 days. Wound care, shower only for 3 days. DISCHARGE MEDICATIONS: 1. Aspirin 81 mg daily. 2. Lipitor 80 mg daily. 3. Neurontin 200 mg b.i.d. 4. Lopressor 25 b.i.d. 5. Nitroglycerin 0.4 sublingual p.r.n. 6. Flomax 0.4 mg daily. 7. Brilinta 90 mg b.i.d. HISTORY: See H and P. DIAGNOSTIC STUDIES/LAB DATA: Post PCI, CBC remains stable, he had a small increase in white count with a peak of 17.7 on the 5th, today it is back down to 11.2. BMP today is normal except for random blood sugar of 103. His troponin peaked greater than 85. CPK peaked at 2109, MB was greater than 298. Hemoglobin A1c was normal at 5.7. BNP was normal at 20. His cholesterol was 153, triglycerides 179, LDL 92, HDL low at 25.5. EKGs post PCI showed low voltage in the limb leads, T-wave inversion in I and aVL, V5, and V6 on the day of discharge. HOSPITAL COURSE: He presented with an inferolateral ST-elevation infarct, underwent emergent catheterization by Dr. Leigh with the finding of a culprit ramus branch, which was stented as above. He had nonobstructive plaquing in the RCA, the LAD had 45% to 50% stenosis. The circumflex had 45% to 50% stenosis. Echocardiogram, 09/30/16, reported LVEF 50% to 55% with mid anterolateral and apical lateral hypokinesis. He underwent uncomplicated revascularization, had no post PCI issues. The groin site was stable, he had no chest pain, no heart failure, no arrhythmias. He did have a fever post admission attributed to his infarct, as to date all cultures are negative, he did receive an empirical course of antibiotics which will be stopped. He has a non-inflamed small cord in his right antecubital fossa from an IV, which does not look like a source for fever. He will watch that, I have asked him to check his temperature daily for a week and record it and call if he becomes febrile again. He received full discharge instructions. CC: Dr. Perez; Dr. Leigh * [id number]/[facility] #: [id number] [facility] HOSPITALJennifer
== END 2016-10-01 13:35 | disposition home or self-care (01) | DRG 247 ==
LOC: ED 19:58 → CHICATH 20:29 → ICU 21:38 → MEDTELE 09-30 10:15
PROVIDERS: ADMIT Internal Medicine Cardiovascular Disease; ATTEND Internal Medicine Cardiovascular Disease
PROC: 3E03317 Introduction of Other Thrombolytic into Peripheral Vein, Percutaneous Approach (ICD-10-PCS; 2016-09-28)
PROC: 4A023N7 Measurement of Cardiac Sampling and Pressure, Left Heart, Percutaneous Approach (ICD-10-PCS; 2016-09-28)
PROC: B2111ZZ Fluoroscopy of Multiple Coronary Arteries using Low Osmolar Contrast (ICD-10-PCS; 2016-09-28)
PROC: B2151ZZ Fluoroscopy of Left Heart using Low Osmolar Contrast (ICD-10-PCS; 2016-09-28)
PROC: 027034Z Dilation of Coronary Artery, One Artery with Drug-eluting Intraluminal Device, Percutaneous Approach (ICD-10-PCS; principal; 2016-09-28 20:20)
DX: I21.19 ST elevation (STEMI) myocardial infarction involving other coronary artery of inferior wall (principal); I25.41 Coronary artery aneurysm; I10 Essential (primary) hypertension; N40.0 Benign prostatic hyperplasia without lower urinary tract symptoms; I25.10 Atherosclerotic heart disease of native coronary artery without angina pectoris; M54.9 Dorsalgia, unspecified; G89.29 Other chronic pain; R50.9 Fever, unspecified; D72.829 Elevated white blood cell count, unspecified; Z88.2 Allergy status to sulfonamides; Z88.6 Allergy status to analgesic agent; Z87.891 Personal history of nicotine dependence; Z82.49 Family history of ischemic heart disease and other diseases of the circulatory system; Z79.82 Long term (current) use of aspirin; Z79.02 Long term (current) use of antithrombotics/antiplatelets
CPT/HCPCS: 36415; 71010; 80048; 80053; 80061; 80202; 81003; 82550; 82553; 83036; 83605; 83721; 83735; 83874; 83880; 84145; 84484; 85025; 85610; 85730; 87040; 87086; 87502; 87641; 93005; 93306; 96374; 99213; A9270-GY; C1725; C1760; C1769; C1876; C1887; G0463; J0583; J0692; J1644; J2250; J2270; J3010; J3370